=== PATIENT | male | born 1995 | race Two or more races ===

== ENCOUNTER 2024-02-13 21:02 | Emergency (ER) | payer OTHER ==
[~2024-02-13] VITALS: Ht 182.9 cm; Wt 93.9 kg
[2024-02-13 21:07] VITALS: PULSE 88; RESP 16; TEMP 97.1
[2024-02-13 23:53] VITALS: BP 123/61; PULSE 88; RESP 16; TEMP 98; O2SAT 100
== END 2024-02-13 22:00 | disposition home or self-care (01) ==
LOC: FSED 21:43
DX: S00.83XA Contusion of other part of head, initial encounter (principal); V43.62XA Car passenger injured in collision with other type car in traffic accident, initial encounter; Y92.488 Other paved roadways as the place of occurrence of the external cause
CPT/HCPCS: 99282